=== PATIENT | male | born 1965 | race Two or more races ===

== ENCOUNTER 2020-07-02 10:34 | Outpatient (CLI) | payer OTHER ==
[2020-07-02] MEDS ORDERED: METFORMIN HCL1000 M2 PO (11:56)
[2020-07-02] MEDS ORDERED: HUMALOG100 UNIT/2 (11:57)
[2020-07-02] MEDS ORDERED: TRICOR145 MG PO (11:57)
[2020-07-02] MEDS ORDERED: TOUJEO SOL300 UNIT/1 (11:57)
== END 2020-07-02 10:51 | disposition home or self-care (01) ==
LOC: TOM 10:34
PROVIDERS: ATTEND Specialist
DX: K43.2 Incisional hernia without obstruction or gangrene (principal)

== ENCOUNTER 2020-07-15 06:00 | Day surgery (SDC) | payer OTHER ==
[~2020-07-15 06:00] MED LIST: HUMALOG100 UNIT/2; METFORMIN HCL1000 M2 PO; TOUJEO SOL300 UNIT/1; TRICOR145 MG PO
[2020-07-15] MEDS ORDERED: CLOPIDOGREL BIS75 MG (13:08)
== END 2020-07-16 08:00 | disposition home or self-care (01) ==
LOC: CIR.AMB 06:00 → O/R 12:52 → SURH 14:01 → O/R 14:42 → SURG 20:28 → CIR.AMB 07-16 08:00 → SURG 07-16 10:09 → O/R 07-16 10:09
PROVIDERS: ATTEND Specialist
DX: K43.2 Incisional hernia without obstruction or gangrene (principal); K66.0 Peritoneal adhesions (postprocedural) (postinfection); Z20.828 Contact with and (suspected) exposure to other viral communicable diseases

== ENCOUNTER → 2023-05-11 | Emergency (ER) | payer OTHER ==
[~2023-05-11] VITALS: Ht 165.1 cm; Wt 79.4 kg
[~2023-05-11] MED LIST changes: +CLOPIDOGREL BIS75 MG; +LIPITOR40 M1; +PLAVIX75 MG
== END | disposition left against medical advice (07) ==
LOC: ER 02:13
DX: Z53.21 Procedure and treatment not carried out due to patient leaving prior to being seen by health care provider (principal)